=== PATIENT | female | born 1975 | race African-American/Black ===

== ENCOUNTER 2024-02-09 00:08 | Emergency (ER) | payer OTHER ==
[~2024-02-09] VITALS: Ht 152.4 cm; Wt 99.3 kg
[2024-02-09 01:43] LABS: BASOPHILS # (AUTO) 0.1 K/UL (0.0-0.2); BASOPHILS % (AUTO) 0.8 % (0.0-2.0); EOSINOPHILS % (AUTO) 0.3 % (0.0-7.0); HEMATOCRIT 42.6 % (31.2-41.9); HEMOGLOBIN 14.4 g/dL (10.9-14.3); LYMPHOCYTES # (AUTO) 3.1 K/uL (0.8-4.8); LYMPHOCYTES % (AUTO) 20.5 % (20.5-51.5); MEAN CORPUSCULAR HEMOGLOBIN 29.9 uug (24.7-32.8); MEAN CORPUSCULAR HGB CONC 34 g/dL (32.3-35.6); MEAN CORPUSCULAR VOLUME 88.2 fL (75.5-95.3); MONOCYTES # (AUTO) 0.8 K/uL (0.1-1.30); MONOCYTES % (AUTO) 5.6 % (0.0-11.0); NEUTROPHILS # (AUTO) 10.9 K/uL (1.8-8.9); NEUTROPHILS % (AUTO) 72.8 % (38.5-71.5); PLATELET COUNT (AUTO) 274 K/uL (179-408); RED BLOOD CELL COUNT(AUTO) 4.83 MIL/uL (3.63-4.92); RED CELL DISTRIBUTION WIDTH 14.2 % (12.3-17.7); WHITE BLOOD COUNT (AUTO) 14.9 K/uL (3.8-11.8)
[2024-02-09 02:01] LABS: DIFFERENTIAL COMMENT 1
[2024-02-09 02:14] LABS: CALCIUM 9.2 mg/dL (8.5-10.1); CARBON DIOXIDE 24 mmol/L (21-32); CHLORIDE 106 mmol/L (98-107); CREATININE 0.9 mg/dL (0.6-1.3); GLUCOSE 98 mg/dL (74-106); POTASSIUM 4.1 mmol/L (3.5-5.1); SODIUM SERUM 138 mmol/L (136-145); UREA NITROGEN, BLOOD 16 mg/dL (7-18)
[2024-02-09 02:27] LABS: ALANINE AMINOTRANSFERASE 24 U/L (14-59); ALBUMIN 3.8 g/dL (3.4-5.0); ALKALINE PHOSPHATASE 93 U/L (50-136); ASPARTATE AMINOTRANSFERASE 16 U/L (15-37); BILIRUBIN,DIRECT 0.1 mg/dL (0.0-0.2); BILIRUBIN,TOTAL 0.3 mg/dL (0.2-1.0); NT-PRO BNP 71 pg/mL (0-125)
[2024-02-09] MEDS ORDERED: ONDANSETRON ODT 4 MG TAB.RAPDIS ONE (03:12)
[2024-02-09] MEDS ORDERED: ACETAMINOPHEN ES 500 MG TABLET ONE (03:32)
[2024-02-09] MEDS: ACETAMINOPHEN ES 500 MG TABLET PO ONE ×2 (03:47→03:48)
[2024-02-09] MEDS: ONDANSETRON ODT 4 MG TAB.RAPDIS SL ONE ×2 (03:48)
[2024-02-09 04:55] VITALS: BP 103/52; TEMP 98; O2SAT 98
== END 2024-02-09 03:45 | disposition home or self-care (01) ==
LOC: ER 00:18
DX: R42 Dizziness and giddiness (principal); J45.909 Unspecified asthma, uncomplicated; F32.A Depression, unspecified; Z90.49 Acquired absence of other specified parts of digestive tract; Z88.1 Allergy status to other antibiotic agents
CPT/HCPCS: 36415; 83605; 84484; 85025; 87040; 93005; A4606; A4663; A9150; Q0162